=== PATIENT | male | born 1995 | race Caucasian/White ===

== ENCOUNTER 2017-04-06 04:28 | Emergency (ER) | payer OTHER ==
[~2017-04-06] VITALS: Ht 172.7 cm; Wt 59.0 kg
--- OUTSIDE RECORDS SUMMARY | 2017-04-06 04:36 | XMS REPORT ---
Author Author EMI MARIEE Organization [employer] Address Unknown Phone Unavailable Care Team Providers Care Project Controls Scheduler Name Role Phone EMI MARIEE CP Unavailable Allergies, Adverse Reactions, Alerts Substance Reaction Event Type Penicillin V Potassium rash Drug Allergy Codeine Sulfate rash Drug Allergy Problems Problem Type Condition Code Onset Dates Condition Status Assessment Dental examination Z01.20 Active Problem Encounter for dental examination Z01.20 Active Medications No Known Medications Procedures Procedure Coding System Code Date AMALGAM-ONE SURFACE PRIMARY/PERM CPT-4 D2140 January 13, 2016 Results No Known Results Summary Purpose [employer] Submission
--- OUTSIDE RECORDS SUMMARY | 2017-04-06 04:36 | XMS REPORT ---
Author Author CHARLOTTE STRINGER Organization [employer] Address Unknown Phone Unavailable Care Team Providers Care Front Man Name Role Phone CHARLOTTE STRINGER CP Unavailable Allergies, Adverse Reactions, Alerts Substance Reaction Event Type Penicillin V Potassium rash Drug Allergy Codeine Sulfate rash Drug Allergy Problems Problem Type Condition Code Onset Dates Condition Status Assessment Encounter for dental examination Z01.20 Active Problem Encounter for dental examination Z01.20 Active Medications No Known Medications Procedures Procedure Coding System Code Date INTRAORL-PERIAPICAL 1 FILM 25834 CPT-4 D0220 May 13, 2015 INTRAORL-PERIAPICAL EA ADD FILM CPT-4 D0230 May 13, 2015 COMP ORAL EVALUATION - NEW/EST PT CPT-4 D0150 May 13, 2015 TOPICAL FLUORIDE VARNISH CPT-4 D1206 May 13, 2015 PROPHYLAXIS - ADULT CPT-4 D1110 May 13, 2015 INTRAORL-PERIAPICAL EA ADD FILM CPT-4 D0230 May 13, 2015 INTRAORL-PERIAPICAL EA ADD FILM CPT-4 D0230 May 13, 2015 PANORAMIC FILM SEE ALSO CODE 75750 CPT-4 D0330 May 13, 2015 BITEWINGS - FOUR FILMS CPT-4 D0274 May 13, 2015 Results No Known Results Summary Purpose [employer] Submission
--- OUTSIDE RECORDS SUMMARY | 2017-04-06 04:36 | XMS REPORT ---
Author Author ZAIDA CLEMENTS [facility] [employer] Address Unknown Phone Unavailable Care Team Providers Care Roofing Laborer Name Role Phone ZAIDA CLEMENTS CP Unavailable Allergies, Adverse Reactions, Alerts Substance Reaction Event Type Penicillin V Potassium rash Drug Allergy Codeine Sulfate rash Drug Allergy Problems Problem Type Condition Code Onset Dates Condition Status Assessment Dental examination Z01.20 Active Problem Encounter for dental examination Z01.20 Active Medications No Known Medications Procedures Procedure Coding System Code Date TOPICAL FLUORIDE VARNISH CPT-4 D1206 January 30, 2016 PROPHYLAXIS - ADULT CPT-4 D1110 January 30, 2016 Vital Signs Date/Time: January 30, 2016 Blood Pressure Diastolic 69 mmHg Blood Pressure Systolic 119 mmHg Results No Known Results Summary Purpose [employer] Submission
--- OUTSIDE RECORDS SUMMARY | 2017-04-06 04:36 | XMS REPORT ---
Author Author TINO CLARKE Organization [employer] Address Unknown Phone Unavailable Care Team Providers Care Mosaic Technician Name Role Phone TINO CLARKE CP Unavailable Allergies, Adverse Reactions, Alerts Substance Reaction Event Type Penicillin V Potassium rash Drug Allergy Codeine Sulfate rash Drug Allergy Problems Problem Type Condition ICD-9 Code Onset Dates Condition Status Assessment Dietary counseling and surveillance V65.3 Active Assessment Exercise counseling V65.41 Active Assessment Routine child health exam V20.2 Active Medications No Known Medications Procedures Procedure Coding System Code Date VISUAL ACUITY SCREEN CPT-4 58098 Apr 17, 2015 Preventive Care Est Pt. Age 12-17 CPT-4 63260 Apr 17, 2015 Vital Signs Date/Time: Apr 17, 2015 Temperature 98.1 F BMIPercentile 9.53 % Weight 119 lbs Height 67.25 in BMI 18.50 Index Blood Pressure Diastolic 72 mmHg Blood Pressure Systolic 120 mmHg Cardiac Monitoring Heart Rate 60 bpm Wt Percentile 9.07 % Ht Percentile 24.99 % Results No Known Results Summary Purpose [employer] Submission
[2017-04-06] MEDS ORDERED: NS IV 1000 ML 1,000 ML IV ONE (04:39)
[2017-04-06] MEDS ORDERED: fentaNYL INJECTION 100 MCG/2 ML AMP IVP ONE (04:45)
[2017-04-06 04:53] LABS: MEAN PLATELET VOLUME 10.7 FL (7.4-10.4); RED BLOOD COUNT 4.89 10^6/uL (4.35-5.85); RED CELL DISTRIBUTION WIDTH 12.7 % (10.0-14.5); WHITE BLOOD COUNT 14.6 10^3/uL (4.3-11.0)
[2017-04-06 05:11] LABS: ALANINE AMINOTRANSFERASE 25 U/L (0-55); ALBUMIN 4.6 GM/DL (3.2-4.5); ALCOHOL < 10 MG/DL (<10); ANION GAP 13 MMOL/L (5-14); ASPARTATE AMINO TRANSFERASE 34 U/L (5-34); BILIRUBIN,DIRECT 0.3 MG/DL (0.0-0.3); BILIRUBIN,INDIRECT 0.5 MG/DL; BILIRUBIN,TOTAL 0.8 MG/DL (0.1-1.0); BLOOD UREA NITROGEN 19 MG/DL (7-18); BUN/CREATININE RATIO 18; CALCIUM 9.4 MG/DL (8.5-10.1); CARBON DIOXIDE 25 MMOL/L (21-32); CHLORIDE 102 MMOL/L (98-107); CREATININE SERUM 1.04 MG/DL (0.60-1.30); GFR ESTIMATED > 60; GLUCOSE 146 MG/DL (70-105); POTASSIUM 3.3 MMOL/L (3.6-5.0); SODIUM 140 MMOL/L (135-145); TOTAL PROTEIN 7.4 GM/DL (6.4-8.2)
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
[2017-04-06] MEDS ORDERED: TETANUS,DIPTH,PERTUSS P/F (BOOSTRIX) 0.5 ML VIAL IM ONE (05:30)
[2017-04-06] MEDS ORDERED: KETOROLAC 30 MG/ML VIAL IVP ONE (06:15)
[2017-04-06 06:17] LABS: BILIRUBIN,URINE NEGATIVE (NEGATIVE); KETONES,URINE 2+ (NEGATIVE); LEUKOCYTE ESTERASE ,URINE 1+ (NEGATIVE); NITRITE,URINE NEGATIVE (NEGATIVE); PH,URINE 6.5 (5-9); PROTEIN,URINE 1+ (NEGATIVE); UROBILINOGEN,URINE NORMAL (NORMAL)
[2017-04-06 06:22] LABS: WBC,URINE RARE /HPF
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
[2017-04-06] MEDS ORDERED: LACTATED RINGERS 1,000 ML IV ONE (06:47)
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
== END 2017-04-06 07:53 | disposition home or self-care (01) ==
LOC: ER 04:33
DX: Z04.3 Encounter for examination and observation following other accident (principal)
CPT/HCPCS: 36415; 70450; 71010; 71260; 72125; 72170; 73080; 74177; 80048; 80076; 80306; 80320; 81000; 85027; 90715; 93041

== ENCOUNTER → 2017-04-07 | Outpatient (CLI) | payer OTHER ==
[2017-04-07 12:59] LABS: BILIRUBIN,URINE NEGATIVE (NEGATIVE); KETONES,URINE NEGATIVE (NEGATIVE); LEUKOCYTE ESTERASE ,URINE 1+ (NEGATIVE); NITRITE,URINE NEGATIVE (NEGATIVE); PH,URINE 6 (5-9); PROTEIN,URINE 1+ (NEGATIVE); UROBILINOGEN,URINE 1 MG/DL (NORMAL)
[2017-04-07 13:08] LABS: SQUAMOUS EPITHELIAL CELL,UR RARE /HPF
== END ==
LOC: LAB 12:37
PROVIDERS: ATTEND Family Medicine
DX: R31.9 Hematuria, unspecified (principal)
CPT/HCPCS: 81000

== ENCOUNTER 2020-02-01 01:34 | Emergency (ER) | payer SELFPAY ==
[~2020-02-01] VITALS: Ht 170 cm; Wt 60.8 kg
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
[2020-02-01] MEDS ORDERED: IBUP-1773 (01:44)
[2020-02-01] MEDS ORDERED: NFCHLORHGL (01:44)
[2020-02-01] MEDS ORDERED: CLIN150C17 (01:44)
[2020-02-01] MEDS ORDERED: METR500T PO (01:45)
[2020-02-01] MEDS ORDERED: CLINDAMYCIN 300 MG/2ML (CLEOCIN) VIAL IM SCH (02:15)
[2020-02-01] MEDS ORDERED: CLINDAMYCIN 300 MG/2ML (CLEOCIN) VIAL IM ONE (02:15)
[2020-02-01] MEDS ORDERED: oxyCODONE/APAP 5/325MG (PERCOCET 5) TABLET PO ONE (02:15)
--- NOTE | 2020-02-01 02:17 | ED EENT ---
History of Present Illness General Chief Complaint: Dental Problems/Pain Stated Complaint: LEFT SIDE OF JAW SWOLLEN Nursing Triage Note: LEFT JAW SWELLING SINCE 01/25/2020 Source: patient Exam Limitations: no limitations History of Present Illness Date Seen by Provider: Feb 01, 2020 Time Seen by Provider: 01:41 Initial Comments This 24-year-old young man presents to emergency room with pain and marketed swelling with induration of the left jaw. Symptoms have been present since January 24. He has been seen twice and was initially started on clindamycin. C lindamycin was changed to Flagyl. Symptoms have worsened but he has not developed fever or signs of sepsis. He has taken ibuprofen for the pain along with tramadol as prescribed. Allergies and Home Medications Allergies Coded Allergies: Penicillins (Verified Allergy, Unknown, 04/06/17) codeine (Verified Allergy, Unknown, 04/06/17) Patient Home Medication List Home Medication List Reviewed: Yes Review of Systems Review of Systems Constitutional: no symptoms reported Eyes: No Symptoms Reported Ears: No Symptoms Reported Nose: no symptoms reported Mouth: see HPI Throat: no symptoms reported Respiratory: no symptoms reported Cardiovascular: no symptoms reported Gastrointestinal: no symptoms reported Musculoskeletal: no symptoms reported Skin: no symptoms reported Neurological: No Symptoms Reported Past Htelwcy-Zlickz-Jschpk Hx Past Med/Social Hx: Reviewed Nursing Past Med/Soc Hx Patient Social History Alcohol Use: Occasionally Uses Recreational Drug Use: No Smoking Status: Current Everyday Smoker Type Used: Cigarettes Recent Foreign Travel: No Contact w/Someone Who Travel: No Recent Infectious Disease Expo: No Recent Hopitalizations: No Physical Abuse: No Sexual Abuse: No Mistreated: No Fear: No Immunizations Up To Date Tetanus Booster (TDap): Unknown Seasonal Allergies Seasonal Allergies: No Past Medical History Surgeries: No Respiratory: No Cardiac: No Neurological: No Genitourinary: No Gastrointestinal: No Musculoskeletal: No Endocrine: No HEENT: No Cancer: No Psychosocial: No Integumentary: No Blood Disorders: No Physical Exam Vital Signs Vital Signs - First Documented 02/01/20 01:40 Temp 36.9 Pulse 92 Resp 18 B/P (MAP) 158/96 (116) Pulse Ox 99 O2 Delivery Room Air Height, Weight, BMI Height: 5'8.00" Weight: 130lbs. oz. 58.422880ep; 21.00 BMI Method: General Appearance: WD/WN, no apparent distress Eyes: bilateral eye normal inspection, bilateral eye PERRL, bilateral eye EOMI Ears: bilateral ear auricle normal, bilateral ear TM normal, bilateral ear bleeding Nose: normal inspection Mouth/Throat: other (Large abscess lateral to the teeth of the left jaw. Marketed localized induration as well with tenderness throughout the entire left jaw area.) Neck: supple, normal inspection Cardiovascular: regular rate, rhythm, no edema Respiratory: lungs clear, normal breath sounds, no respiratory distress Gastrointestinal: normal bowel sounds, non tender, soft Neurologic/Psychiatric: die maker electronic II-XII nml as tested, no motor/sensory deficits, a lert, normal mood/affect, oriented x 3 Skin: normal color, warm/dry Procedures/Interventions I&D : Blade Size: 11 Progress Abscess was treated with Hurricaine spray for anesthetic. An incision was then made over the most fluctuant area and there were copious amounts of pus and blood expressed and suctioned with a Olson catheter. A second incision was made more anteriorly. Blood was expressed but no further purulent drainage. Progress/Results/Core Measures Results/Orders My Orders Orders - ISACC BRAVO MD Clindamycin Injection (Cleocin Injection (02/01/20 02:15) Clindamycin Injection (Cleocin Injection (02/01/20 02:15) Oxycodone/Apap 5/325mg Tablet (Percocet (02/01/20 02:15) Medications Given in ED Current Medications Medications Dose Ordered Sig/Muriel Route Start Time Stop Time Status Last Admin Dose Admin Clindamycin Phosphate 300 mg ONCE ONCE IM 02/01/20 02:15 02/01/20 02:17 DC 02/01/20 02:28 300 MG Oxycodone/ Acetaminophen 1 tab ONCE ONCE PO 02/01/20 02:15 02/01/20 02:17 DC 02/01/20 02:28 1 TAB Vital Signs/I&O 02/01/20 02/01/20 02/01/20 01:40 02:28 02:48 Temp 36.9 36.9 36.8 Pulse 92 79 Resp 18 16 B/P (MAP) 158/96 (116) 139/81 (116) Pulse Ox 99 98 O2 Delivery Room Air Room Air Blood Pressure Mean: 116 Progress Progress Note : Progress Note Incision and drainage was performed. Patient was given Percocet for pain and an injection of clindamycin 600 mg IM. Departure Impression Primary Impression: Dental abscess Disposition: 01 HOME, SELF-CARE Condition: Improved Departure-Patient Inst. Decision time for Depature: 02:12 Referrals: ETHEL LARA DDS NO,LOCAL PHYSICIAN (PCP) Primary Care Physician Patient Instructions: Tooth Abscess (DC) Add. Discharge Instructions: [place] your teeth gently at least twice daily with a soft bristle toothbrush. Rinse with chlorhexidine wash after brushing your teeth. Continue taking all of the medications you're presently taking. Restart the clindamycin antibiotic. Increase frequency to 300 mg every 6 hours. Follow-up with a your dentist as soon as possible. Alternatively, you may contact Dr. Lara, oral surgeon. If you are not improving as expected or worsen, especially if you develop fever, return to the [facility] walk-in clinic or the ER. All discharge instructions reviewed with patient and/or family. Voiced understanding. Copy Copies To 1: KWABENA PHILLIPS JOSHUA T MD Feb 01, 2020 02:17
[2020-02-01 02:48] VITALS: BP 139/81
== END 2020-02-01 02:48 | disposition home or self-care (01) ==
LOC: EDUNIT# 01:34 → ER 01:36
DX: K04.7 Periapical abscess without sinus (principal); F17.210 Nicotine dependence, cigarettes, uncomplicated; Z88.0 Allergy status to penicillin; Z88.5 Allergy status to narcotic agent
CPT/HCPCS: 99284

== ENCOUNTER 2021-07-23 21:27 | Emergency (ER) | payer SELFPAY ==
[~2021-07-23] VITALS: Ht 178 cm; Wt 63.5 kg
[~2021-07-23 21:27] MED LIST: CLIN150C20; IBUP-1773; METR500T PO; NFCHLORHGL
--- NOTE | 2021-07-23 21:57 | ED Integumentary General ---
General Chief Complaint: Laceration Stated Complaint: L ANKLE LAC Source: patient Exam Limitations: no limitations History of Present Illness Date Seen by Provider: Jul 23, 2021 Time Seen by Provider: 21:33 Initial Comments Patient is a 25-year-old male who presents to the emergency department today with a chief complaint of laceration to the left ankle. Patient was cutting some wood, swinging a hatchet when he brought it down, it went through his boot and sock into his medial malleolus. Patient denies any bony pain. He is ambulatory. He states he is up-to-date on his tetanus shot. No other complaints of illness or injury. All other review of systems reviewed and negative except as stated. Timing/Duration: just prior to arrival Severity: mild Location: extremities (Left medial ankle) Possible Cause: other (Direct blow) Associated Symptoms: denies symptoms Allergies and Home Medications Allergies Coded Allergies: Penicillins (Verified Allergy, Unknown, 04/06/17) codeine (Verified Allergy, Unknown, 04/06/17) Patient Home Medication List Home Medication List Reviewed: Yes Chlorhexidine Gluconate (Chlorhexidine Gluconate) 473 Ml Mouthwash, (Reported) Entered as Reported by: BRIANNA MIN on 02/01/20143 Clindamycin HCl (Clindamycin HCl) 150 Mg Capsule, (Reported) Entered as Reported by: BRIANNA MIN on 02/01/20143 Ibuprofen (Ibuprofen) 600 Mg Tablet, (Reported) Entered as Reported by: BRIANNA MIN on 02/01/20143 Metronidazole (Flagyl) 500 Mg Tablet, Unknown Dose PO, (Reported) Entered as Reported by: BRIANNA MIN on 02/01/20144 Review of Systems Review of Systems Constitutional: see HPI Respiratory: no symptoms reported Cardiovascular: no symptoms reported Gastrointestinal: no symptoms reported Skin: other (Laceration) Psychiatric/Neurological: No Symptoms Reported All Other Systems Reviewed Negative Unless Noted: Yes Past Salwgow-Rdtsco-Iknuis Hx Patient Social History Tobacco Use?: Yes Tobacco type used: Cigarettes Smoking Status: Current Everyday Smoker Smokeless Tobacco Frequency: Current Everyday User Use of E-Cig and/or Vaping dev: No Substance use?: No Alcohol Use?: Yes Alcohol type: Beer Alcohol Frequency: Couple times a week Pt feels they are or have been: No Immunizations Up To Date Tetanus Booster (TDap): Unknown Influenza Vaccine Up-to-Date: No; Not Current First/Initial COVID19 Vaccinat: n/a Seasonal Allergies Seasonal Allergies: No Past Medical History Surgeries: No Respiratory: No Cardiac: No Neurological: No Genitourinary: No Gastrointestinal: No Musculoskeletal: No Endocrine: No HEENT: No Cancer: No Psychosocial: No Integumentary: No Blood Disorders: No Physical Exam Vital Signs Vital Signs - First Documented 07/23/21 21:34 Temp 36.7 Pulse 91 Resp 14 B/P (MAP) 133/67 (89) Pulse Ox 98 O2 Delivery Room Air Capillary Refill : General Appearance: WD/WN, no apparent distress Respiratory: no respiratory distress, no accessory muscle use Extremities: normal range of motion, no calf tenderness; No swelling Neurologic/Psychiatric: no motor/sensory deficits, alert, normal mood/affect, oriented x 3 Skin: normal color, warm/dry, other (Patient has a 1-1/2 cm laceration just overlying the left medial malleolus. It appears like a clean cut, involves subcu tissues. no surrounding contused tissue. No bony tenderness around the malleolus. No active bleeding. Distal neurovascular intact to the foot.) Procedures/Interventions Wound Location: Lower Extremities Other Wound Location medial malleolus Wound Length (cm): 1.5 Wound's Depth, Shape: superficial, linear Wound Explored: clean Irrigated w/ Saline (ccs): 100 Anesthesia: 1% Lidocaine Volume Anesthetic (ccs): 2 Wound Debrided: minimal Suture: Vicryl Suture Size: 4-0 Number of Sutures: 2 Layer Closure?: 1 Sterile Dressing Applied?: Yes Progress/Results/Core Measures Results/Orders Vital Signs/I&O 07/23/21 21:34 Temp 36.7 Pulse 91 Resp 14 B/P (MAP) 133/67 (89) Pulse Ox 98 O2 Delivery Room Air Departure Impression Primary Impression: Laceration of left ankle Qualified Codes: S91.012A - Laceration without foreign body, left ankle, i nitial encounter Disposition: HOME, SELF-CARE Condition: Stable Departure-Patient Inst. Decision time for Depature: 21:56 Referrals: [facility]/K NO,LOCAL PHYSICIAN (PCP) Primary Care Physician Patient Instructions: Laceration Repair With Stitches (DC) Add. Discharge Instructions: You may wash the area with soap and water/you can shower. Put a little triple antibiotic ointment over the stitches twice a day for the next 2 days. The stitches will need to come out in 10 days. You can come here to have them removed. Come back to the ER sooner if you develop any redness, swelling, streaking from the laceration site or drainage of pus or fever. Follow-up with your primary care physician as needed. YUMIKO MCCLELLAN MD Jul 23, 2021 21:57
[2021-07-23 22:17] VITALS: BP 125/60
== END 2021-07-23 22:19 | disposition home or self-care (01) ==
LOC: EDUNIT# 21:27 → ER 21:29
DX: S91.012A Laceration without foreign body, left ankle, initial encounter (principal); F17.210 Nicotine dependence, cigarettes, uncomplicated; W26.8XXA Contact with other sharp object(s), not elsewhere classified, initial encounter
CPT/HCPCS: 12031